=== PATIENT | female | born 1980 | race African-American/Black ===

== ENCOUNTER 2017-04-29 20:48 | Emergency (ER) | payer MEDICAID, OTHER ==
[~2017-04-29] VITALS: Ht 175.3 cm; Wt 96.0 kg
[2017-04-30 01:27] VITALS: BP 121/78
== END 2017-04-30 01:29 | disposition home or self-care (01) ==
LOC: ER 22:17
DX: S92.355A Nondisplaced fracture of fifth metatarsal bone, left foot, initial encounter for closed fracture (principal); Y93.89 Activity, other specified; W50.0XXA Accidental hit or strike by another person, initial encounter; Y92.89 Other specified places as the place of occurrence of the external cause
CPT/HCPCS: 73630; 81025; 99284; Z7610